=== PATIENT | male | born 1960 | race African-American/Black ===

== ENCOUNTER 2025-02-11 21:47 | Emergency (ER) | payer SELFPAY ==
[2025-02-11 22:03] VITALS: BP 174/97; PULSE 66; RESP 18; TEMP 98.7; BMI 22.1
[2025-02-11] MEDS ORDERED: predniSONE 20 MG TABLET (UD) ONE (22:37)
[2025-02-11] MEDS ORDERED: ACETAMINOPHEN 500 MG TABLET (FP) ONE (22:37)
[2025-02-11] MEDS ORDERED: METHOCARBAMOL 500 MG TABLET ONE (22:38)
[2025-02-11] MEDS: ACETAMINOPHEN 500 MG TABLET (FP) PO ONE (22:42)
[2025-02-11] MEDS: METHOCARBAMOL 500 MG TABLET PO ONE (22:42)
[2025-02-11] MEDS: predniSONE 20 MG TABLET (UD) PO ONE (22:42)
== END 2025-02-11 22:42 | disposition home or self-care (01) ==
LOC: JERFT 21:47
DX: G56.22 Lesion of ulnar nerve, left upper limb (principal)
CPT/HCPCS: 99283-25